=== PATIENT | male | born 1980 | race African-American/Black ===

== ENCOUNTER 2017-07-13 19:00 | Emergency (ER) | payer SELFPAY ==
[2017-07-13 19:04] VITALS: BP 150/84; PULSE 86; TEMP 97.8; BMI 25.4
--- NOTE | 2017-07-13 19:06 | PDOC ---
History of Present Illness - General History Source: Patient Exam Limitations: No Limitations - History of Present Illness Initial Comments: A portion of this note was documented by scribe services under my direction. I have reviewed the details of the note, within reason, and agree with the documentation. The case summary and management plan written by me. 07/13/17 20:06 Assessment and plan: This is a 37-year-old male who comes in complaining of pain in his left lateral foot. Patient denies any history of trauma. X-ray of the foot was done <Sonia Fink I - Last Filed: 07/13/17 20:15> - History of Present Illness Initial Comments: 07/13/17 20:20 The patient is a 37 year old male, with no significant past medical history, who presents to the emergency department with, left foot pain for approx. one week. The patient denies any recent injury or trauma and states he is unsure how he hurt his left foot. The patient reports the left foot pain is worse at night and with bearing weight. The patient reports he has not taken any medication for the left foot pain prior to arrival. He denies any recent fevers, chills, headache or dizziness. He denies any recent nausea, vomit, diarrhea or constipation. He denies any recent chest pain or shortness of breath. He denies any recent dysuria, frequency, urgency or hematuria. PAST MEDICAL HISTORY: no significant history PAST SURGICAL HISTORY: no significant history FAMILY HISTORY: no pertinent history SOCIAL HISTORY: Pt lives with family and is employed. MEDICATIONS: reviewed ALLERGIES: As per nursing notes Review of Systems General: No fevers or chills, no weakness, no weight loss HEENT: No change in vision. No sore throat,. No ear pain CardioVascular: No chest pain or shortness of breath Respiratory:No cough, or wheezing. Gastrointestinal: no nausea, vomiting, diarrhea or constipation, No rectal bleeding Genitourinary: No dysuria, hematuria, or frequency Musculoskeletal: +Left foot pain. Neurologic: No headache, vertigo, dizziness or loss of consciousness Psychiatric: nor depression Skin: No rashes or easy bruising Endocrine: no increased thirst or abnormal weight change Allergic: no skin or latex allergy All other systems reviewed and normal Physical Exam General: Well-nourished well-developed individual, no acute distress Extremities: +Mild tenderness to palpation of the left foot laterally. No swelling or ecchymoses. Neurovascular intact. Skin: No rashes Neuro: Alert and oriented x3, nonfocal exam, grossly intact, normal gait Psych: Normal mood and affect <Omer Larry - Last Filed: 07/13/17 21:17> - General Chief Complaint: Pain Stated Complaint: LEFT FOOT PAIN Time Seen by Provider: 07/13/17 19:05 Past History - Past Medical History COPD: No Other medical history: PT DENIES - Suicide/Smoking/Psychosocial Hx Smoking Status: No Smoking History: Never smoked Have you smoked in the past 12 months: No Number of Cigarettes Smoked Daily: 0 Hx Alcohol Use: No Drug/Substance Use Hx: No Substance Use Type: None <Sonia Fink I - Last Filed: 07/13/17 20:15> <Omer Larry - Last Filed: 07/13/17 21:17> - Past Medical History Allergies/Adverse Reactions: Allergies Allergy/AdvReac Type Severity Reaction Status Date / Time No Known Allergies Allergy Verified 07/13/17 19:00 Home Medications: Ambulatory Orders NK [No Known Home Medication] 07/13/17 *Physical Exam - Vital Signs Last Vital Signs Temp Pulse Resp BP Pulse Ox 97.8 F 86 18 150/84 99 07/13/17 19:00 07/13/17 19:00 07/13/17 19:00 07/13/17 19:00 07/13/17 19:00 <Sonia Fink I - Last Filed: 07/13/17 20:15> - Vital Signs Last Vital Signs Temp Pulse Resp BP Pulse Ox 97.8 F 86 18 150/84 99 07/13/17 19:00 07/13/17 19:00 07/13/17 19:00 07/13/17 19:00 07/13/17 19:00 <Omer Larry - Last Filed: 07/13/17 21:17> ED Treatment Course - Medications Given in the ED: ED Medications Discontinued Medications Generic Name Dose Route Start Last Admin Trade Name Freq PRN Reason Stop Dose Admin Ibuprofen 600 mg 07/13/17 19:33 07/13/17 19:57 Motrin - PO 07/13/17 19:34 600 mg ONCE ONE Administration <Omer Larry - Last Filed: 07/13/17 21:17> *DC/Admit/Observation/Transfer - Discharge Dispostion Admit: No <Sonia Fink I - Last Filed: 07/13/17 20:15> - Attestations Scribe Attestion: 07/13/17 20:24 Documentation prepared by Omer Larry, acting as neuropsychology medical consultant for Sonia Fink MD. <Omer Larry - Last Filed: 07/13/17 21:17> Diagnosis at time of Disposition: Left foot pain - Discharge Dispostion Disposition: HOME Condition at time of disposition: Stable - Patient Instructions Additional Instructions: For the pain take ibuprofen 3 tablets 3 times a day with food don't take on an empty stomach. Follow-up with your primary care doctor at the end of this week if not improved, Return to the emergency department immediately with ANY new, persistent or worsening symptoms. Continue any medications as previously prescribed by your physician. You should follow up with your primary doctor as soon as possible regarding today's emergency department visit. . Please make sure your doctor reviews the results of your emergency evaluation. Thank you for coming to the Emergency Department today for your care. It was a pleasure to see you today. Please note that your evaluation is INCOMPLETE until you follow-up with your doctor.
[2017-07-13] MEDS ORDERED: IBUPROFEN 600 MG TABLET (FP) PO ONE ×2 (19:33→19:56)
== END 2017-07-13 20:20 | disposition home or self-care (01) ==
LOC: FER 19:00
DX: M79.672 Pain in left foot (principal)
CPT/HCPCS: 73630-TC-LT; 99282-25

== ENCOUNTER 2017-12-26 21:30 | Emergency (ER) | payer SELFPAY ==
--- NOTE | 2017-12-26 21:47 | PDOC ---
History of Present Illness - General History Source: Patient Exam Limitations: No Limitations - History of Present Illness Initial Comments: 12/26/17 21:57 The patient is a 37 year old male with no significant past medical history who presents to the ED complaining of several days of left sided chest pain. He reports his pain is achy, worse with positional changes, and radiates to the back. He does endorse heavy lifting at work. No radiation down the LUE. No shortness of breath or palpitations. No peripheral edema. No fever or chills. No nausea, vomiting, or diarrhea. <Lyndsay Francis - Last Filed: 12/26/17 21:53> <Radha Meza - Last Filed: 12/26/17 23:42> - General Chief Complaint: Pain, Acute Stated Complaint: CHEST/BACK PAIN Past History <Lyndsay Francis - Last Filed: 12/26/17 21:53> - Past Medical History COPD: No - Suicide/Smoking/Psychosocial Hx Smoking Status: No Smoking History: Never smoked Have you smoked in the past 12 months: No Number of Cigarettes Smoked Daily: 0 Hx Alcohol Use: No Drug/Substance Use Hx: No Substance Use Type: None <Radha Meza - Last Filed: 12/26/17 23:42> - Past Medical History Allergies/Adverse Reactions: Allergies Allergy/AdvReac Type Severity Reaction Status Date / Time No Known Allergies Allergy Verified 07/13/17 19:00 Home Medications: Ambulatory Orders Methocarbamol [Robaxin -] 500 mg PO TID #30 tablet 12/26/17 Oxycodone HCl/Acetaminophen [Percocet 5/325 -] 2 tab PO BID #12 tablet MDD 4 Review of Systems - Review of Systems Able to Perform ROS?: Yes Comments:: 12/26/17 22:04 GENERAL/CONSTITUTIONAL: No fever or chills. No weakness. HEAD, EYES, EARS, NOSE AND THROAT: No change in vision. No ear pain or discharge. No sore throat. CARDIOVASCULAR: +L chest pain. No shortness of breath, palpitations, or lightheadedness. No peripheral edema. RESPIRATORY: No cough, wheezing, or hemoptysis. GASTROINTESTINAL: No nausea, vomiting, diarrhea or constipation. GENITOURINARY: No dysuria, frequency, or change in urination. MUSCULOSKELETAL: No joint or muscle swelling or pain. No neck or back pain. SKIN: No rash NEUROLOGIC: No headache, vertigo, loss of consciousness, or change in strength/ sensation. ENDOCRINE: No increased thirst. No abnormal weight change. HEMATOLOGIC/LYMPHATIC: No anemia, easy bleeding, or history of blood clots. ALLERGIC/IMMUNOLOGIC: No hives or skin allergy. <Lyndsay Francis - Last Filed: 12/26/17 21:53> *Physical Exam - Physical Exam Comments: 12/26/17 22:09 Documentation prepared by Lyndsay Francis, acting as medical pathologist for Radha Meza MD. <Lyndsay Francis - Last Filed: 12/26/17 21:53> *DC/Admit/Observation/Transfer - Attestations Scribe Attestion: 12/26/17 22:09 Documentation prepared by Lyndsay Francis, acting as medical pathologist for Radha Meza MD. <Lyndsay Francis - Last Filed: 12/26/17 21:53> - Discharge Dispostion Decision to Admit order: No <Radha Meza - Last Filed: 12/26/17 23:42> Diagnosis at time of Disposition: Chest pain, muscular, Cardiomegaly - Discharge Dispostion Disposition: HOME Condition at time of disposition: Stable - Prescriptions Prescriptions: Methocarbamol [Robaxin -] 500 mg PO TID #30 tablet Oxycodone HCl/Acetaminophen [Percocet 5/325 -] 2 tab PO BID #12 tablet MDD 4 - Referrals Referrals: Gerard Buck MD [Staff Physician] - - Patient Instructions Printed Discharge Instructions: Muscle Strain - Post Discharge Activity Forms/Work/School Notes: Back to Work
[2017-12-26] MEDS ORDERED: KETOROLAC TROMETHAMINE 60 MG/2 ML VIAL IM ONE (21:53)
[2017-12-26] MEDS ORDERED: METHOCARBAMOL 500 MG TABLET PO ONE (21:53)
[2017-12-26] MEDS ORDERED: KETOROLAC TROMETHAMINE 60 MG/2 ML VIAL ONE (21:55)
[2017-12-26] MEDS ORDERED: METHOCARBAMOL 500 MG TABLET ONE (21:55)
[2017-12-26 22:01] VITALS: BP 138/88; PULSE 81; TEMP 99.2; BMI 27.6
--- NOTE | 2017-12-27 15:00 | EKG ---
Test Reason : Blood Pressure : / mmHG Vent. Rate : 068 BPM Atrial Rate : 068 BPM P-R Int : 134 ms QRS Dur : 084 ms QT Int : 368 ms P-R-T Axes : 074 024 002 degrees QTc Int : 391 ms NORMAL SINUS RHYTHM MINIMAL VOLTAGE CRITERIA FOR LVH, MAY BE NORMAL VARIANT BORDERLINE ECG NO PREVIOUS ECGS AVAILABLE Confirmed by PAT WOODRUFF MD ([id number]) on 12/27/2017 2:59:46 PM Referred By: MD LEE Confirmed By:PAT WOODRUFF MD
== END 2017-12-26 23:46 | disposition home or self-care (01) ==
LOC: FER 21:30
PROC: 3E0233Z Introduction of Anti-inflammatory into Muscle, Percutaneous Approach (ICD-10-PCS; principal; 2017-12-26)
DX: R07.89 Other chest pain (principal); I51.7 Cardiomegaly
CPT/HCPCS: 71046-TC-FY; 93005; 99282-25